=== PATIENT | male | born 1955 | race Caucasian/White ===

== ENCOUNTER 2018-01-11 17:54 | Emergency (ER) | payer BC ==
[2018-01-11] MEDS ORDERED: Loratadine 10 MG Tab PO ONE (19:45)
[2018-01-11] MEDS ORDERED: Famotidine 10 MG Tab PO ONE (19:45)
--- NOTE | 2018-01-11 19:54 | EDM.PDOC ---
ED HPI GENERAL MEDICAL PROBLEM - General Chief Complaint: Allergic Reaction Stated Complaint: ALLGERIC REACTION Time Seen by Provider: 01/11/18 19:15 Source of Information: Reports: Patient History Limitations: Reports: No Limitations - History of Present Illness INITIAL COMMENTS - FREE TEXT/NARRATIVE: co allergy hives x 4d, gotten worse, saw Nathalie Cleveland this AM, given hydroxyzine 25 mg 6h prn for itching, not taken as itching is better also given prednisone 60 mg daily for 4d, then 40 mg daily for 4d, then 20 mg daily for 4d, took 1st dose at 1 PM today 6h [employer] now with swelling of lip, pt concerned re a reaction to prednisone, however this is d/t the original hives which is still present - Related Data Allergies Allergy/AdvReac Type Severity Reaction Status Date / Time No Known Allergies Allergy Verified 01/11/18 19:45 Home Meds: Home Meds Famotidine 40 mg PO DAILY #14 tablet 01/11/18 [Rx] Loratadine 10 mg PO DAILY #14 tablet 01/11/18 [Rx] hydrOXYzine Pamoate [Hydroxyzine Pamoate] 25 mg PO Q6HR PRN 01/11/18 [History] predniSONE 40 mg PO ASDIRECTED 01/11/18 [History] ED ROS ALLERGIC REACTION - Review of Systems Review Of Systems: See Below Constitutional: Reports: No Symptoms HEENT: Reports: No Symptoms Respiratory: Reports: No Symptoms Cardiovascular: Reports: No Symptoms Endocrine: Reports: No Symptoms GI/Abdominal: Reports: No Symptoms : Reports: No Symptoms Musculoskeletal: Reports: No Symptoms Skin: Reports: Pruritis, Rash Neurological: Reports: No Symptoms Psychiatric: Reports: No Symptoms Hematologic/Lymphatic: Reports: No Symptoms Immunologic: Reports: No Symptoms ED EXAM GENERAL NO PERIP PULSE - Physical Exam Exam: See Below Exam Limited By: No Limitations General Appearance: Alert, WD/WN, No Apparent Distress Ears: Normal External Exam, Hearing Grossly Normal Nose: Normal Inspection, Normal Mucosa, No Blood Throat/Mouth: Normal Inspection, Normal Lips, Normal Teeth, Normal Gums, Normal Oropharynx, Normal Voice, No Airway Compromise Head: Atraumatic, Normocephalic Neck: Normal Inspection, Supple, Non-Tender, Full Range of Motion Respiratory/Chest: No Respiratory Distress, Lungs Clear, Normal Breath Sounds, No Accessory Muscle Use, Chest Non-Tender Cardiovascular: Normal Peripheral Pulses, Regular Rate, Rhythm, No Edema, No Gallop, No JVD, No Murmur, No Rub GI/Abdominal: Soft, Non-Tender, No Distention, No Mass Extremities: Normal Inspection, Normal Range of Motion, Non-Tender, No Pedal Edema Neurological: Alert, Oriented, CN II-XII Intact, Normal Cognition, No Motor/ Sensory Deficits Psychiatric: Normal Affect, Normal Mood Skin Exam: Other (typical hives with slightly elevated flat wheals of up to 12 cm diameter in neck, axilla b/l, trunk, groin b/l, no vesicles, no dermatographism, skin intact, slight swell of lower lateral lip, o-p neg without swell, nl BS, no wheeze) Lymphatic: No Adenopathy Course - Vital Signs Last Recorded V/S: Last Vital Signs Temp 36.6 C 01/11/18 18:00 Pulse 90 01/11/18 18:00 Resp 16 01/11/18 18:00 BP 134/70 01/11/18 18:00 Pulse Ox 99 01/11/18 18:00 - Orders/Labs/Meds Meds: Medications Discontinued Medications Generic Name Dose Route Start Last Admin Trade Name Freq PRN Reason Stop Dose Admin Famotidine 10 mg 01/11/18 19:45 01/11/18 19:53 Pepcid PO 01/11/18 19:46 Not Given ONETIME ONE Loratadine 10 mg 01/11/18 19:45 01/11/18 19:57 Claritin PO 01/11/18 19:46 10 mg ONETIME ONE Administration - Re-Assessments/Exams Free Text/Narrative Re-Assessment/Exam: 01/11/18 20:01 works in a diary, 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 Add the antihistamine loratadine 10 mg 1 tab daily for 2 weeks. Add the antihistamine famotidine 40 mg 1 tab daily for 2 weeks. If you still have a rash, use hydroxyzine 25 mg 1 tab every 6 hours. Use a cool compress as needed for itching. Avoid all chemicals and cologne. See an vineyard tender in 1-2 weeks. Call your Physician or Return to Emergency Department if: * Your condition worsens in any way. * You develop fever greater than 100.4. * You have vomitting that does not stop with medications. * You have pain that is not controlled with medications.
== END 2018-01-11 20:02 | disposition home or self-care (01) ==
LOC: FB.ED 17:54
DX: L50.9 Urticaria, unspecified (principal)
CPT/HCPCS: 99283; A9270